=== PATIENT | male | born 1945 | race Caucasian/White ===

== ENCOUNTER → 2018-01-23 08:16 | Outpatient (CLI) | payer MEDICARE, OTHER, SELFPAY ==
--- NOTE | 2018-01-23 | DI.MRI.S_ITS ---
PROCEDURE: MR SHOULDER LT WO CON INDICATIONS: 72 year-old male with chronic left shoulder pain. TECHNIQUE: Noncontrast oblique coronal T2 fast spin echo with fat saturation, oblique sagittal T1 spin echo and T2 fast spin echo with fat saturation, axial T1 spin echo and T2 fast spin echo with fat saturation through the shoulder. COMPARISON: , , SHOULDER MINIMUM 2 VIEW LEFT, 12/16/2010, 14:09. FINDINGS: Image quality: Excellent. Rotator cuff: On sagittal image 8, low-grade intrasubstance partial thickness tears are situated adjacent to the supraspinatus and infraspinatus musculotendinous junctions. There is signal heterogeneity of the supraspinatus and infraspinatus tendon fibers, consistent with tendinopathy. The subscapularis tendon also demonstrates fissural partial thickness articular surface tear through the superior fibers on sagittal image 15. Sagittal images demonstrate mild supraspinatus and infraspinatus muscle atrophy. Bones and bursae: No bone marrow contusions or fractures. There is moderate acromioclavicular joint degeneration, with osseous and synovial hypertrophy. The acromion demonstrates conventional anatomy, without an os acromiale. There is moderate glenohumeral joint degeneration, with full thickness cartilage loss of the glenoid fossa and humeral head articular surface, as well as mild posterior subluxation of the humeral head on axial images. There is small subacromial-subdeltoid bursal fluid. Capsule and soft tissues: There is small glenohumeral joint effusion, extending into the anterior subscapular recess. There is global labral degenerative truncation and tear. In the absence of intra-articular contrast, the glenohumeral ligaments appear intact. The long head of the biceps tendon demonstrates normal location, with moderate loculated tendon sheath fluid within the bicipital groove. There is rotator interval fibrosis, partially obscuring the coracohumeral ligament. IMPRESSION: 1. Low-grade intrasubstance partial thickness tears adjacent to the supraspinatus and infraspinatus musculotendinous junctions (concealed interstitial delamination) on a background of tendinopathy, with associated mild corresponding muscle atrophy. 2. Additional fissural partial thickness articular surface tear through the superior subscapularis tendon fibers. 3. Moderate acromioclavicular and glenohumeral joint degeneration. Mild subacromial-subdeltoid bursitis. 4. Global labral degenerative truncation and tear. 5. Moderate long head of the biceps tenosynovitis within the bicipital groove. 6. Rotator interval fibrosis would raise the question of adhesive capsulitis. Dictated by: Juice Woods M.D. on 01/23/2018 at 9:10 Approved by: Juice Woods M.D. on 01/23/2018 at 9:23
== END ==
PROVIDERS: PCP Family Medicine; Visit Provider Student in an Organized Health Care Education/Training Program
DX: M25.512 Pain in left shoulder (principal); S46.812A Strain of other muscles, fascia and tendons at shoulder and upper arm level, left arm, initial encounter; M65.822 Other synovitis and tenosynovitis, left upper arm
CPT/HCPCS: 73221

== ENCOUNTER → 2018-06-24 07:43 | Outpatient (CLI) | payer MEDICARE, OTHER, SELFPAY ==
--- NOTE | 2018-06-24 | DI.ECHO.S_ITS ---
[facility] +---------+ : : [address] [place] : : : : [id number] : : : : Phone: [phone]+ Echocardiogram Report + + :Name: JON SHARP Study Date: 06/24/2018 Height: 77 in : :[facility] Weight: 255 lb : : Gender: Male BSA: 2.5 m2 : :: 1945 Age: 73 yrs BP: 128/76 mmHg: :Reason For Study: Syncope : : Performed By: Caryn Trevino : :Referring: CAROLE QUIÑONES : + + Interpretation Summary 1) Normal left ventricular thickness, size, wall motion, and systolic function (EF 60-65%). 2) Grossly, normal right ventricular size and function. 3) Diastolic parameters suggest a pseudonormalization pattern, consistent with probable elevated filling pressures. 4) The left atrium is severely dilated. 5) No significant valvular abnormalities. 6) The aortic root is mildly dilated at 4.4cm. The ascending aorta is mild- moderately enlarged at 4.3cm. The aortic arch is mildly enlarged at 3.9cm. 7) No prior echo available for comparison. Procedure: A two-dimensional transthoracic echocardiogram with color flow and Doppler was performed. The study quality was technically adequate. There is no prior echocardiogram noted for this patient. The patient was in normal sinus rhythm during the exam. Left Ventricle: The left ventricle is normal in size, wall thickness, and systolic function without any focal wall motion abnormalities. The ejection fraction is estimated to be 60-65%. Diastolic parameters suggest a pseudonormalization pattern, consistent with probable elevated filling pressures. Right Ventricle: The right ventricle grossly appears normal in size with probable normal systolic function. Atria: The left atrium is severely dilated. Right atrial size is normal. The interatrial septum is intact with no evidence for an atrial septal defect. Mitral Valve: The mitral valve is grossly normal. There is no mitral regurgitation noted. Aortic Valve: The aortic valve is trileaflet. The aortic valve opens well. The aortic valve is mildly calcified. There is no aortic valve stenosis. No aortic regurgitation is present. Tricuspid Valve: The tricuspid valve is normal in structure and function. There is a trace or physiologic amount of tricuspid regurgitation. The right ventricular systolic pressure is estimated to be at least 34 mmHg based on an estimated right atrial pressure of 3 mm Hg. Pulmonic Valve: The pulmonic valve is not well seen, but is grossly normal. There is trace pulmonic regurgitation. Great Vessels: The aortic root is mildly dilated. The ascending aorta is mild-moderately enlarged. The aortic arch is mildly enlarged. The IVC is of normal diameter and collapses greater than 50% with a sniff. This suggests a low right atrial pressure of 3 mm Hg. Pericardium/ Pleura There is no pericardial effusion. There is no pleural effusion. MMode/2D Measurements & Calculations LVIDd: 5.4 cm Ao root diam: 4.4 cm LVIDs: 2.9 cm Aortic Jxn: 3.6 cm FS: 47.1 % asc Aorta Diam: 4.3 cm EPSS: 0.32 cm Ao Arch Diam (Prox Trans): 3.9 cm IVSd: 1.1 cm LVPWd: 0.98 cm LV harden. diameter/BSA (cm/m^2): 2.2 LV sys. diameter/BSA (cm/m^2): 1.2 LA dimension: 4.4 cm RA long axis: 6.0 cm LA A2 area: 33.3 cm2 RA area: 20.4 cm2 LA A4 area: 31.0 cm2 RA vol: 59.3 ml LA length (vol): 7.0 cm RA : 23.9 ml/m2 LA vol: 125.6 ml IVC diam: 2.0 cm LA vol index: 50.6 ml/m2 Doppler Measurements & Calculations Ao V2 max: 171.1 cm/sec MV E max chin: 97.8 cm/sec Ao V2 mean: 111.0 cm/sec MV A max chin: 84.9 cm/sec Ao max P.7 mmHg MV E/A: 1.2 Ao mean P.9 mmHg Med Peak E' Chin: 6.1 cm/sec Ao V2 VTI: 35.1 cm E/E' med: 16.0 Lat Peak E' Chin: 8.1 cm/sec E/E' lat: 12.2 E/e' average: 14.1 MV dec time: 0.30 sec MV P1/2t: 89.6 msec TR max chin: 277.5 cm/sec MV P1/2t max chin: 98.2 cm/sec TR max P.8 mmHg MVA(P1/2t): 2.5 cm2 PA V2 max: 97.7 cm/sec PA V2 mean: 66.2 cm/sec PA mean P.1 mmHg PA Accel Time: 0.13 sec Reading Physician:05:29 PM
== END ==
PROVIDERS: PCP Family Medicine; Visit Provider Family Medicine
DX: R55 Syncope and collapse (principal); I77.810 Thoracic aortic ectasia; R56.9 Unspecified convulsions
CPT/HCPCS: 93306

== ENCOUNTER → 2018-07-29 07:38 | Outpatient (CLI) | payer MEDICARE, OTHER, SELFPAY ==
--- NOTE | 2018-07-29 | DI.MRI.S_ITS ---
PROCEDURE: MR STROKE Pre- and post-contrast brain MRI, non-contrast brain MR angiogram, pre- and postcontrast neck MR angiogram INDICATIONS: syncope and seizure TECHNIQUE: Brain: Noncontrast axial T1 spin echo, axial T2 fast spin echo, sagittal and axial FLAIR, coronal T2 fast spin echo, axial gradient echo, axial diffusion and ADC through the brain. After the administration of contrast, axial 3D VIBE of the cranial vasculature and brain. Brain MRA: Non-contrast 3-D time of flight MR angiogram, with multiple zrmtlhy-dluioksvt-utgpehaacq (MIP) reformats performed. Neck MRA: Axial and sagittal TruFISP through the neck. Coronal dynamic MR angiogram during administration of contrast in the arterial and venous phases, with 3-dimenstional cwqizvi-gcobezvsz-uavednfxxs (MIP) reformats constructed from subtraction images. COMPARISON: None. FINDINGS: Image quality: Excellent. BRAIN: CSF spaces: Ventricles are normal in size and shape. Basal cisterns are patent. No extra-axial fluid collections. Brain: No intracranial bleeds or mass effects. Paul-white matter interface is normal. Diffusion weighted images show no acute ischemic insults. Mild diffuse cerebral volume loss. Brainstem appears normal. Normal intravascular flow voids are present. No abnormal intracranial enhancement. Skull and face: Calvarial marrow signal is normal. Orbits appear normal. Sinuses: Sinuses and mastoids are clear. BRAIN MR ANGIOGRAM: Anterior circulation: Intracranial internal carotid arteries are normal in size and enhancement. The flow within the paired anterior cerebral arteries is normal and symmetric. The flow within the middle cerebral arteries is normal and symmetric. The anterior communicating artery is seen. No stenoses, occlusions, or aneurysms. Posterior circulation: The visualized portions of the vertebral arteries demonstrate normal caliber, and join to form a normal appearing basilar artery. The flow within the posterior cerebral arteries is normal and symmetric. No stenoses, occlusions, or aneurysms. NECK MR ANGIOGRAM: Carotids: Great vessels demonstrate a conventional anatomy as they arise from the aortic arch. The origins of the common carotid arteries appear patent. The calibers and courses of both common carotid arteries are normal. The bifurcation regions appear normal bilaterally. The internal carotid arteries demonstrate normal course and caliber. Posterior circulation: The origins of the vertebral arteries are not well-seen. More superior portions of both vertebral arteries demonstrate normal course and caliber, and join to form a normal appearing basilar artery. Miscellaneous: Subclavian arteries appear patent. Pre-contrast images through the neck show no soft tissue abnormalities. IMPRESSION: BRAIN MRI: 1. No acute process. No recent infarct. 2. Mild diffuse cerebral volume loss. BRAIN MR ANGIOGRAM: Negative cerebral MR angiography. NECK MR ANGIOGRAM: 1. Patent bilateral internal carotid arteries. 2. Suboptimally visualized vertebral artery origins. Vertebral arteries are otherwise patent. Dictated by: River Fay M.D. on 07/29/2018 at 9:38 Approved by: River Fay M.D. on 07/29/2018 at 9:42
== END ==
PROVIDERS: PCP Family Medicine; Visit Provider Family Medicine
DX: R55 Syncope and collapse (principal); R56.9 Unspecified convulsions
CPT/HCPCS: 70553

== ENCOUNTER → 2018-12-11 08:14 | Outpatient (CLI) | payer MEDICARE, OTHER, SELFPAY ==
--- NOTE | 2018-12-11 09:27 | PM.TREADMILL ---
Cardiac Stress Test Report Referral & Results Date Patient Seen: 12/11/18 Requesting provider: Alexys Patino Indication: Syncope Rest ECG: Unremarkable Procedure Note: Today following both written and verbal informed consent the patient was exercised according to a standard Ramon protocol patient went for a total of 8 minutes 4 seconds achieving a maximum heart rate of 137 maximum systolic blood pressure of 226. This is approximately 10.1 METS. Exercise was terminated at this point because of targets were met. Patient was also given Cardiolite through a previously started Hep-Lock IV by the electrocardiographic technician approximately 1 minute prior to the cessation of exercise. With exercise patient did develop flat upsloping ST segment depression in leads V4 through V6 however there is lots of gukr-ja-vddh variability some of which was at baseline leading me to believe this was nonischemic but related to rate and motion. This also returned rapidly to baseline with cessation of activity that also suggesting nonischemic nature Patient had occasional PVCs including ventricular couplets and a single triplet during the exercise and recovery portion of the test. Later in recovery patient also had occasional PACs including brief (5-10 beats) runs of SVT that were asymptomatic Patient's functional aerobic impairment rated-15% on the active scale or 115% of normal Patient did have a hypertensive response to exercise peaking with blood pressure at 226/115 about 1 minutes into recovery. Patient had normal heart rate response off of his metoprolol Impression: Nonischemic ST changes as above Cardiac dysrhythmia as above Better than average exercise capacity Please see perfusion imaging as well for details regarding possible ischemia Please note: Actual ECG tracings can be found in the PACS system.
--- NOTE | 2018-12-11 09:30 | P.PCN_ITS ---
Cardiac Stress Test Report Referral & Results Date Patient Seen: 12/11/18 Requesting provider: Alexys Patino Indication: Syncope Rest ECG: Unremarkable Procedure Note: Today following both written and verbal informed consent the patient was exercised according to a standard Ramon protocol patient went for a total of 8 minutes 4 seconds achieving a maximum heart rate of 137 maximum systolic blood pressure of 226. This is approximately 10.1 METS. Exercise was terminated at this point because of targets were met. Patient was also given Cardiolite through a previously started Hep-Lock IV by the warehouse technician approximately 1 minute prior to the cessation of exercise. With exercise patient did develop flat upsloping ST segment depression in leads V4 through V6 however there is lots of amzq-ug-gdwr variability some of which was at baseline leading me to believe this was nonischemic but related to rate and motion. This also returned rapidly to baseline with cessation of activity that also suggesting nonischemic nature Patient had occasional PVCs including ventricular couplets and a single triplet during the exercise and recovery portion of the test. Later in recovery patient also had occasional PACs including brief (5-10 beats) runs of SVT that were asymptomatic Patient's functional aerobic impairment rated-15% on the active scale or 115% of normal Patient did have a hypertensive response to exercise peaking with blood pressure at 226/115 about 1 minutes into recovery. Patient had normal heart rate response off of his metoprolol Impression: Nonischemic ST changes as above Cardiac dysrhythmia as above Better than average exercise capacity Please see perfusion imaging as well for details regarding possible ischemia Please note: Actual ECG tracings can be found in the PACS system.
--- NOTE | 2018-12-12 16:54 | DI.NM.S_ITS ---
DATE OF SERVICE: 12/11/2018 PROCEDURE: Two-day treadmill nuclear stress test. INDICATIONS: Syncope and collapse. Nonsustained VT on monitor. CLINICAL: Patient exercised for 8 minutes and 8 seconds reaching 92% of maximum predicted heart rate. METs achieved were 10.1 with SINA of -15% on active scale. No anginal or anginal-equivalent symptoms during stress test. ECG: Resting ECG shows normal sinus rhythm. With exercise, there were frequent PVCs and occasional PACs noted. During recovery, there were frequent PVCs as well including in couplets that appear multi-focal. There were very mild horizontal ST depressions in the anterolateral leads that resolved within 1 minute of recovery. HEMODYNAMICS: Resting blood pressure, 132/86, and max blood pressure 226/115 mmHg. RADIOPHARMACEUTICAL: 25.7 mCi of TC-99 used for rest injection and 25.7 mCi TC- 99 used for stress injection. PERFUSION IMAGES: No perfusion evidence of ischemia or infarction. GATED IMAGES: Normal left ventricular size, wall motion, and systolic function (post stress EF 66%). CONCLUSIONS: Low risk, normal treadmill nuclear stress test from ischemia standpoint. Frequent premature ventricular contractions (PVCs) during the exercise stress test along with hypertensive response. 1. No perfusion evidence of ischemia or infarction. 2. Normal left ventricle or size, wall motion, and systolic function (post stress ejection fraction (EF) 66%). 3. No angina or anginal-equivalent symptoms during the stress test. 4. Nondiagnostic ECG. Mild horizontal ST depressions in the anterolateral leads during very early recovery that results by 1 minute of recovery. 5. Frequent PVCs during this exercise and recovery portion of the stress test. During recovery, multi-focal couplets were also noted. Occasional premature atrial contractions (PACs) noted as well. 6. Good exercise capacity (10.1 METs, SINA -15%). Target heart rate achieved. 7. Hypertensive response to exercise (resting BP 132/86, max BP 226/115 mmHg). 8. No prior nuclear stress test available for comparison. Robert Croft LORRIE/radha/ doc#: [id number]/job#: [id number] dd: 12/12/2018 13:04:00 dt: 12/12/2018 16:41:00 DICTATING MD/COPIES TO: Silke Hays MD COPIES MNE: LUIS
== END ==
PROVIDERS: PCP Family Medicine; Visit Provider Internal Medicine Cardiovascular Disease
DX: R55 Syncope and collapse (principal); I49.3 Ventricular premature depolarization; I49.1 Atrial premature depolarization
CPT/HCPCS: 78452; 93016; 93017; 93018; A9502

== ENCOUNTER → 2020-01-27 10:12 | Outpatient (CLI) | payer MEDICARE, OTHER, SELFPAY ==
[2020-01-28 14:14] LABS: COVID19 Sendout Not Detected
== END ==
PROVIDERS: PCP Family Medicine; Visit Provider Registered Nurse
DX: Z01.812 Encounter for preprocedural laboratory examination (principal)
CPT/HCPCS: 87635

== ENCOUNTER 2020-01-30 14:54 | Day surgery (SDC) | payer MEDICARE, OTHER, SELFPAY ==
[2020-01-30] VITALS (7 sets, daily range): BP systolic 99–128; BP diastolic 60–81; PULSE 58–71; RESP 12–18; TEMP 36.5–36.7; O2SAT 94–99; BMI 208.9
--- NOTE | 2020-01-30 | PATH_ITS ---
[facility] Accession Number: [id number] . 01 Material submitted: . colon - SIGMOID COLON POLYP BIOPSY . 01 Clinical history: . COLONOSCOPY W/ANESTHESIA . 02 Diagnosis: Sigmoid Colon, Polyp, Biopsy: Tubular adenoma. V 02/02/2020 1123 Local . 02 Electronically signed: . Shaye Wong MD, Pathologist NPI- [id number] . 01 Gross description: . SIGMOID COLON POLYP BIOPSY: Received in formalin are 3 fragment(s) of mohr, soft tissue measuring 0.3 x 0.3 x 0.3 cm to 0.1 x 0.1 x 0.1 cm submitted entirely in 1 cassette(s) /QBJ 01/31/2020 0650 Local . 02 Pathologist provided ICD-10: D12.5 . 02 CPT . 368535 Performed at: [address] [facility] [address], [place], [place] [id number] MD Timmy Dickens MD Phone: [phone] Performed at: [address] [facility] [address] [place], [place] [id number] MD Shaye Wong MD Phone: [phone]
--- NOTE | 2020-01-30 07:24 | PM.OP.ENDO ---
Operative Date/Time/Diagnoses Date of procedure: 01/30/20 Time of procedure: 16:01 Pre-op diagnosis: 1. History of colon polyps 2. Screening for colon cancer Post-op diagnosis: other (1. Sigmoid polyp x1, 3 mm, removed with cold biopsy forceps, 2. Sigmoid diverticulosis) Procedure & Clinicians Study performed: Colonoscopy Same procedure as scheduled: Yes Indications: 1. History of colon polyps 2. Screening for colon cancer Surgeon: Coral Ross Procedure Notes SCOAP/Timeout: 16:01 Procedure in detail: ENDOSCOPIST: Coral Ross MD ANESTHESIOLOGIST: Gayle Suarez MD PROCEDURE: Colonoscopy with biopsy INDICATIONS: 1. History of colon polyps 2. Screening for colon cancer MEDICATION: Levsin 0.125 mg sublingual, fentanyl 100 mcg, and titrated propofol until appropriate level of sedation achieved. ASA CLASS: 3 CECAL WITHDRAWAL TIME: 12 minutes COMPLICATIONS: None. EXTENT OF PROCEDURE: Cecum. QUALITY OF PREP: Good with portions of liquid stool. PROCEDURE: Prior to insertion of the colonoscope, a digital rectal examination was accomplished with circumferential palpation of the distal rectal mucosa without significant findings being noted. The high-definition colonoscope was passed into the rectum in the usual fashion and advanced over to the cecum without difficulty. The ileocecal valve, appendiceal stoma, and medial wall all could be inspected and no abnormalities were seen. ASCENDING COLON: As the colonoscope was withdrawn, care was taken to expose and inspect the haustral folds and no abnormalities were seen. HEPATIC FLEXURE: Normal, no polyps, diverticula or other abnormalities. TRANSVERSE COLON: Normal, no polyps, diverticula or other abnormalities. DESCENDING COLON: Normal, no polyps, diverticula or other abnormalities. SIGMOID COLON: 3 mm polyp removed with cold biopsy forceps. Moderate diverticulosis, noninflamed. Otherwise, normal, no other abnormalities. RECTUM: Normal. J maneuver was produced. There was no significant perianal disease. The J maneuver was broken. The remainder of the rectum was inspected and there was no external hemorrhoid disease. The scope was withdrawn. IMPRESSION: 1. Sigmoid polyp x1, 3 mm, removed with biopsy forceps 2. Sigmoid diverticulosis, moderate PLAN: 1. Follow-up in clinic status post pathology results. The possibility of a missed lesion including a malignancy has been discussed with the patient previously. Potential alarm symptoms have been discussed and should be reported immediately. Complications: none Post-procedure Recommendations: Will call with biopsy results Follow up: weeks (2) Disposition: PACU
[2020-01-30] MEDS: HYOSCYAMINE 0.125 MG TABLET PO (15:15)
[2020-01-30] MEDS: LACTATED RINGERS 1,000 ML 200 ML IV (15:15)
--- NOTE | 2020-01-30 15:48 | PM.PREOP ---
Pre-operative Note COVID-19 COVID-19 status: Negative Result date/Date tested (Pos, Neg/Pending): 01/27/20 Interval Note History & Physical reviewed/Exam performed by Physician: Yes Changes to H&P: No ASA Class (for procedural sedation): III (01/27/20)
--- NOTE | 2020-01-30 17:25 | SUR.PHASEII ---
Pt left when ready and left in stable condition.
--- NOTE | 2020-01-30 17:26 | SUR.PHASEII ---
informed of Dr. Ross's d/c instructions.
== END 2020-01-30 17:25 | disposition home or self-care (01) ==
PROVIDERS: PCP Family Medicine; Referring Provider Student in an Organized Health Care Education/Training Program; Visit Provider Student in an Organized Health Care Education/Training Program
PROC: 0DJD8ZZ Inspection of Lower Intestinal Tract, Via Natural or Artificial Opening Endoscopic (ICD-10-PCS; CPT 45378; principal; 2020-01-30 16:00)
DX: Z12.11 Encounter for screening for malignant neoplasm of colon (principal); Z86.010 Personal history of colon polyps; Z11.59 Encounter for screening for other viral diseases; I73.9 Peripheral vascular disease, unspecified; E06.3 Autoimmune thyroiditis; I10 Essential (primary) hypertension; E78.5 Hyperlipidemia, unspecified; K57.30 Diverticulosis of large intestine without perforation or abscess without bleeding; D12.5 Benign neoplasm of sigmoid colon
CPT/HCPCS: 45380; J2704; J3010

== ENCOUNTER → 2021-03-29 10:28 | Outpatient (CLI) | payer MEDICARE, OTHER, SELFPAY ==
--- NOTE | 2021-03-29 | DI.CT.S_ITS ---
PROCEDURE: CT ABDOMEN PELVIS W CON INDICATIONS: Unspecified abdominal pain TECHNIQUE: After the administration of oral and intravenous contrast, axial sections were acquired from the lung bases to the pubic symphysis. Coronal and sagittal reformats were performed. For radiation dose reduction, the following was used: automated exposure control, adjustment of mA and/or kV according to patient size. COMPARISON:None. FINDINGS: Image quality: Excellent. Lung bases: Lung bases are clear. Heart size is normal. Solid organs: Liver: The liver has no mass or intrahepatic biliary ductal dilatation. The right lobe of the liver has a 1.5 cm cyst. The portal vein and hepatic veins are patent. Biliary: The gallbladder has no gallstones, pericholecystic fluid, gallbladder wall thickening, or surrounding inflammatory change. Pancreas: The pancreas has no mass or ductal dilatation. There is no surrounding inflammation. Spleen: Normal size. There are no masses. Adrenals: No hypertrophy or nodules. Kidneys: No obstructive calculus or hydronephrosis. No solid mass. There is a 1 cm right renal cyst. Peritoneum and bowel: The distal esophagus and stomach are normal. The small bowel has a normal caliber and appearance. The terminal ileum is normal. The large bowel has diverticulosis with no evidence of diverticulitis. The appendix is not definitively visualized; however there are no secondary CT findings to suggest acute appendicitis. No free fluid or air. Nodes and vessels: No retroperitoneal or mesenteric adenopathy by size criteria. The aorta demonstrates postoperative changes of aortobifemoral stent graft placement. There is no evidence of endoleak. The inferior vena cava is normal in size. The left SYSTEMS ADMINISTRATOR has a 50% stenosis. Miscellaneous: No abdominal wall mass or hernia. PELVIS: Genitourinary: The bladder has no wall thickening or mass. No bladder calcifications. Miscellaneous: No inguinal hernias or adenopathy. Bones: Degenerative changes with no focal abnormality. No vertebral body compression fractures. IMPRESSION: No acute abdominal or pelvic abnormality. Dictated by: Roshan Dumont M.D. on 03/29/2021 at 12:10 Approved by: Roshan Dumont M.D. on 03/29/2021 at 12:18
== END ==
PROVIDERS: PCP Family Medicine; Referring Provider Family Medicine; Visit Provider Family Medicine
DX: R10.9 Unspecified abdominal pain (principal)
CPT/HCPCS: 74177

== ENCOUNTER → 2021-06-24 09:39 | Outpatient (CLI) | payer MEDICARE, OTHER, SELFPAY ==
[2021-06-24 11:56] LABS: COVID19 -Nasal RAPID Negative (Negative)
== END ==
PROVIDERS: PCP Family Medicine; Visit Provider Physician Assistant
DX: Z20.822 Contact with and (suspected) exposure to COVID-19 (principal)
CPT/HCPCS: 87635; C9803

== ENCOUNTER → 2021-10-10 10:45 | Outpatient (CLI) | payer MEDICARE, OTHER, SELFPAY ==
--- NOTE | 2021-10-10 | DI.US.S_ITS ---
PROCEDURE: US PERIPH VENOUS LOW EXTREM LT INDICATIONS: LEFT CALF PAIN TECHNIQUE: Real-time imaging, as well as color and pulse Doppler interrogation, were performed of the lower extremity deep veins from the inguinal ligament to the popliteal fossa. COMPARISON: None. FINDINGS: The common femoral, femoral and popliteal veins are normally compressible, and free of intraluminal thrombus. Color and pulse Doppler demonstrate normal phasic intraluminal flow. There is normal augmentation response to distal compression maneuver. IMPRESSION: No evidence of deep vein thrombosis involving the left lower extremity. Dictated by: Dorys Brunson MD, PhD on 10/10/2021 at 11:56 Approved by: Dorys Brunson MD, PhD on 10/10/2021 at 11:56
== END ==
PROVIDERS: PCP Family Medicine; Referring Provider Internal Medicine; Visit Provider Internal Medicine
DX: M79.662 Pain in left lower leg (principal)
CPT/HCPCS: 93971

== ENCOUNTER → 2021-12-08 11:57 | Outpatient (CLI) | payer MEDICARE, OTHER, SELFPAY ==
--- NOTE | 2021-12-08 | DI.RAD.S_ITS ---
PROCEDURE: XR FINGER RT MIN 2V INDICATIONS: right thumb pain TECHNIQUE: AP hand, 2 views of the right thumb acquired. COMPARISON: None. FINDINGS: Bones: No fractures or dislocations. No suspicious bony lesions. Degenerative arthritis involving the thumb IP joint and MCP joint. Mild triscaphe joint degenerative arthritis. Soft tissues: No suspicious soft tissue calcifications. 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 Dictated by: Jose Bowling M.D. on 12/08/2021 at 15:39 Approved by: Jose Bowling M.D. on 12/08/2021 at 15:40
== END ==
PROVIDERS: PCP Family Medicine; Referring Provider Family Medicine; Visit Provider Family Medicine
DX: M18.11 Unilateral primary osteoarthritis of first carpometacarpal joint, right hand (principal); M19.031 Primary osteoarthritis, right wrist; M79.644 Pain in right finger(s)
CPT/HCPCS: 73140

== ENCOUNTER → 2022-03-14 13:11 | Outpatient (ROUT) | payer MEDICARE, OTHER, SELFPAY ==
[2022-03-14 15:05] LABS: COVID19 -Nasal RAPID Negative (Negative)
== END ==
PROVIDERS: PCP Family Medicine; Visit Provider Family Medicine
DX: Z20.822 Contact with and (suspected) exposure to COVID-19 (principal); R50.9 Fever, unspecified
CPT/HCPCS: 87635

== ENCOUNTER → 2022-03-21 08:22 | Outpatient (ROUT) | payer MEDICARE, OTHER, SELFPAY ==
[2022-03-21 09:03] LABS: Add Manual Diff / Slide Review NO; Basophils Absolute Auto 0 /uL (0-100); Basophils Percent Auto 0.4 % (0-2); Eosinophils Absolute Auto 100 /uL (0-450); Eosinophils Percent Auto 1.1 % (2-4); Hematocrit 37.8 % (41-53); Hemoglobin 13.2 g/dL (13.5-17.5); Lymphocytes Absolute Auto 2200 /uL (1100-4500); Lymphocytes Percent Auto 21.8 % (25-40); Mean Corpuscular Hemoglobin 32.1 PG (26-34); Mean Corpuscular Volume 91.6 fL (80-100); Monocytes Absolute Auto 900 /uL (0-900); Monocytes Percent Auto 8.7 % (3-14); Neutrophils Absolute Auto 6800 /uL (1500-7000); Platelet Count 282 X10^3/uL (150-400); Red Blood Cell Count 4.13 X10^6/uL (4.5-5.9); Red Cell Distribution Width 14.2 % (11.6-14.8)
== END ==
PROVIDERS: PCP Family Medicine; Visit Provider Family Medicine
DX: R50.9 Fever, unspecified (principal); D72.829 Elevated white blood cell count, unspecified
CPT/HCPCS: 85025

== ENCOUNTER → 2022-03-21 16:12 | Outpatient (CLI) | payer MEDICARE, OTHER, SELFPAY ==
[2022-03-21 18:09] LABS: Alanine Aminotransferase 48 IU/L (<50); Albumin 3.8 g/dL (3.5-5.0); Albumin Globulin Ratio 1.2 (1.0-2.8); Alkaline Phosphatase 85 U/L (38-126); Aspartate Aminotransferase 27 IU/L (17-59); Bilirubin Total 0.5 mg/dL (0.2-1.3); Blood Urea Nitrogen 20 mg/dL (9-20); C-Reactive Protein Quant 7.8 mg/dL (<1.0); Calcium 8.6 mg/dL (8.4-10.2); Carbon Dioxide 24 mmol/L (22-32); Chloride 98 mmol/L (98-107); Estimated Glomerular Filt Rate > 60 mL/min (>60); Globulin 3.1 g/dL (1.7-4.1); Glucose 98 mg/dL (80-110); HEMOLYSIS < 15 (0-50); Sodium 131 mmol/L (137-145); Total Protein 6.9 g/dL (6.3-8.2)
== END ==
PROVIDERS: PCP Family Medicine; Referring Provider Family Medicine; Visit Provider Family Medicine
DX: D72.829 Elevated white blood cell count, unspecified (principal); R50.9 Fever, unspecified
CPT/HCPCS: 36415; 80053; 85025; 86140

== ENCOUNTER → 2022-04-25 09:44 | Outpatient (CLI) | payer MEDICARE, OTHER, SELFPAY ==
--- NOTE | 2022-04-25 09:47 | DI.US.S_ITS ---
PROCEDURE: US ABDOMEN COMPLETE INDICATIONS: Specified abnormal findings of blood chemistry TECHNIQUE: Real-time scanning was performed of the abdominal and retroperitoneal organs, with image documentation. COMPARISON: None. FINDINGS: Liver: Liver is normal in size and homogeneous in echotexture. Gallbladder: There is no gallstone. No gallbladder wall thickening or pericholecystic fluid. No sonographic Magana sign. Biliary ducts: Intrahepatic bile ducts are non-dilated. Extrahepatic bile duct caliber measures 3.6 mm. Normal is 6-7 mm or less in diameter, or 10 mm or less post-cholecystectomy. Pancreas: Visualized portions of the pancreas are sonographically normal. Spleen: Spleen is normal in size and homogeneous in echotexture. Kidneys: Kidneys are normal in size and echotexture. Right kidney measures 12.3 cm long; left kidney measures 13.3 cm long. No hydronephrosis or nephrolithiasis. No solid masses. Aorta: Visualized proximal to mid aorta is normal in caliber at less than 3 cm. Distal abdominal aortic aneurysm is seen with red devil distal abdominal aorta measures 6.3 cm in diameter. Aorto bi-iliac stent is seen and is patent. Iliacs: Proximal common iliac arteries are normal in caliber at less than 2.5 cm. IVC: Intrahepatic inferior vena cava is patent. Miscellaneous: No free abdominal fluid. IMPRESSION: 1. Distal infrarenal abdominal aortic aneurysm with prior placement of aorto bi-iliac stent. The stent is patent. No periaortic fluid. 2. Rest of the exam is unremarkable. Dictated by: Dm Mascorro M.D. on 04/25/2022 at 11:39 Approved by: Dm Mascorro M.D. on 04/25/2022 at 11:41
== END ==
PROVIDERS: PCP Family Medicine; Referring Provider Family Medicine; Visit Provider Family Medicine
DX: I71.4 Abdominal aortic aneurysm, without rupture (principal); R79.89 Other specified abnormal findings of blood chemistry
CPT/HCPCS: 76700

== ENCOUNTER → 2022-04-27 14:23 | Outpatient (CLI) | payer MEDICARE, OTHER, SELFPAY ==
--- NOTE | 2022-04-27 14:26 | DI.CT.S_ITS ---
PROCEDURE: CT CHEST ABD PEL W CON INDICATIONS: ABNORMAL WEIGHTLOSS/ABNORMAL LABS TECHNIQUE: After the administration of oral and intravenous contrast, axial sections acquired from the supraclavicular neck to the pubic symphysis. Coronal and sagittal reformats were performed. For radiation dose reduction, the following was used: automated exposure control, adjustment of mA and/or kV according to patient size. COMPARISON: [facility], CT, CT ABDOMEN PELVIS W CON, 03/29/2021, 11:14. FINDINGS: Image quality: Degraded by metallic artifact in the chest. motion degraded. CHEST: Lower Neck: No enlarged lymph nodes. Thyroid: Within normal limits Axillae: No adenopathy. Chest Wall: Postsurgical changes of the shoulders. This is only partially seen. There is some irregularity versus artifact around the right shoulder arthroplasty. () Lungs and Airways: Scattered scarring and atelectasis. No dense consolidation. No pleural effusion. There are calcified granulomas. Micro nodules are present, for example in the right image 6/105, for which follow-up is optional. Pleura: No pleural effusions or pneumothorax. Heart: Coronary artery calcifications. Thoracic Vessels: No aneurysm of the thoracic aorta. Mediastinum and Kylee: No adenopathy by size criteria. Esophagus: Small hiatal hernia and suspected small amount of reflux. ABDOMEN: Liver: Stable hypoattenuating lesion in segment 5. Subcentimeter lesions are too small to characterize. These are stable. Gallbladder: Unremarkable Biliary ducts: Unremarkable. 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 Mildly atrophic pancreas Spleen: Unremarkable. Adrenal Glands: Unremarkable. Kidneys and Ureters: Sub centimeters are too small to characterize. Bosniak 1 and 2 lesions are present. Stomach and Bowel: No bowel obstruction. Irregular suspected luminal contents in the cecal wall, although a left luminal mass could have this appearance. Peritoneum: No pathologic ascites. Ventral Wall: Small fat containing umbilical hernia. Right flank soft tissue contusion. Abdominal Nodes: Perivascular lesion in the left periaortic region measuring 16 millimeters in short axis (79), and a thickness of 2.4 centimeters (72.) Vessels: Infrarenal aortic stent graft extending to the iliacs as before. Also see above. PELVIS: Pelvic Organs: Prostate is not well evaluated Bladder: Unremarkable. Pelvic Nodes: No enlarged lymph nodes. Miscellaneous: No inguinal hernias are seen. Bones: Scattered spondylotic changes. Heterogeneous, indeterminate appearance of the bones in the upper thoracic spine. Small lucent lesion in the C7 vertebral body measuring 9 millimeters. Minimally displaced fracture of the right 11th rib. IMPRESSION: Possible soft tissue lesion around the aorta just below the renal arteries. Differential also includes extension and possible infection of the excluded aneurysm sac. Aortic stent graft is in place. Indeterminate lucency in the C7 vertebral body with heterogeneous appearance of the cervical thoracic vertebral bodies, at least partially due to degenerative changes. Depending on clinical context, the above findings could be further evaluated with PET-CT or MRI. Right flank soft tissue contusion and minimally displaced fracture of the right 11th rib. Irregularity of the partially seen right proximal humerus around the arthroplasty may be due to artifact. If there are symptoms in this region, consider dedicated radiograph. Heterogeneous cecum likely secondary to mixing luminal contents, although intraluminal mass could also have this appearance. Correlate with colonoscopy. Other incidental findings above. Dictated by: Madhav Nino M.D. on 04/27/2022 at 17:30 Approved by: Madhav Nino M.D. on 04/27/2022 at 17:52
== END ==
PROVIDERS: PCP Family Medicine; Referring Provider Family Medicine; Visit Provider Family Medicine
DX: R93.5 Abnormal findings on diagnostic imaging of other abdominal regions, including retroperitoneum (principal); R63.4 Abnormal weight loss; R79.89 Other specified abnormal findings of blood chemistry; S30.1XXA Contusion of abdominal wall, initial encounter; S22.31XA Fracture of one rib, right side, initial encounter for closed fracture
CPT/HCPCS: 71260; 74177; Q9967

== ENCOUNTER → 2022-04-28 17:40 | Outpatient (CLI) | payer MEDICARE, OTHER, SELFPAY ==
[2022-04-28 18:12] LABS: Add Manual Diff / Slide Review NO; Basophils Absolute Auto 100 /uL (0-100); Basophils Percent Auto 0.4 % (0-2); Eosinophils Absolute Auto 0 /uL (0-450); Eosinophils Percent Auto 0.1 % (2-4); Hematocrit 32.3 % (41-53); Hemoglobin 11.1 g/dL (13.5-17.5); Lymphocytes Absolute Auto 1000 /uL (1100-4500); Lymphocytes Percent Auto 5.5 % (25-40); Mean Corpuscular HGB Conc 34.3 % (30-36); Mean Corpuscular Hemoglobin 30.1 PG (26-34); Mean Corpuscular Volume 87.7 fL (80-100); Monocytes Absolute Auto 1400 /uL (0-900); Monocytes Percent Auto 7.7 % (3-14); Neutrophils Absolute Auto 16100 /uL (1500-7000); Neutrophils Percent Auto 86.3 % (50-75); Platelet Count 444 X10^3/uL (150-400); Red Blood Cell Count 3.68 X10^6/uL (4.5-5.9); White Blood Cell Count 18.6 X10^3/uL (4.5-11.0)
[2022-05-02 18:10] LABS: Anti Thyroglobulin Antibody >2250.0 IU/mL (0.0-0.9); Thyroid Peroxidase Antibodies 166 IU/mL (0-34)
[2022-05-10 21:34] LABS: Thyroglobulin Level 20 ng/mL (.)
== END ==
PROVIDERS: PCP Family Medicine; Referring Provider Family Medicine; Visit Provider Family Medicine
DX: E07.9 Disorder of thyroid, unspecified (principal); D72.829 Elevated white blood cell count, unspecified; R63.4 Abnormal weight loss; R53.83 Other fatigue
CPT/HCPCS: 36415; 84432; 85025; 86376; 86800; 87040

== ENCOUNTER → 2022-04-28 17:46 | Outpatient (CLI) | payer MEDICARE, OTHER, SELFPAY ==
--- NOTE | 2022-04-28 17:49 | DI.MRI.S_ITS ---
PROCEDURE: MR ABDOMEN WO/W CON INDICATIONS: PERIAORTIC MASS TECHNIQUE: Coronal HASTE, axial 2D FLASH in- and [id number]; axial breath-hold T2 FSE. Dynamic axial VIBE during the administration of contrast; post-contrast coronal VIBE or 2D FLASH with fat saturation from the hepatic dome to the iliac crests. Optional diffusion weighted imaging and ADC may be performed. COMPARISON: [facility], CT, CT ABDOMEN PELVIS W CON, 03/29/2021, 11:14. [facility], CT, CT CHEST ABD PEL W CON, 04/27/2022, 16:06. FINDINGS: Image quality: Excellent. Lung bases: No basal pleural effusions. Solid organs: Liver is normal in size and enhancement. A few small hepatic cysts are present. Gallbladder is unremarkable. Biliary system is non dilated. Pancreas is normal in morphology. Spleen is normal in size and enhancement. No adrenal nodules. Both kidneys demonstrate normal size and enhancement, without hydronephrosis. Small simple renal cortical cysts are present. Nodes and vessels: No retroperitoneal or mesenteric adenopathy by size criteria. An infrarenal aorto bi-iliac stent is present as seen on prior CTs. As seen on the most recent CT, there is a saccular aneurysm along the left aspect of the abdominal aorta, just inferior to the origin of the renal arteries. This measures approximately 6.6 centimeters craniocaudally () and 2.6 centimeters in thickness (). There is mild adjacent fat stranding and enhancement of the aneurysm wall. No definite extravasation of contrast into the aneurysm/endoleak visualized. The finding abuts the left psoas muscle without a definite psoas abscess visualized. Bowel and peritoneum: Visualized large and small bowel is non-dilated. Bones and soft tissues: Bone marrow is normal in overall signal. IMPRESSION: Redemonstrated saccular aneurysm along the left aspect of the abdominal aorta, just inferior to the origin of the renal arteries. 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 No definite evidence of endoleak. Vascular surgical consultation may be helpful to direct further management. Dictated by: Rick Steele M.D. on 04/29/2022 at 10:00 Approved by: Rick Steele M.D. on 04/29/2022 at 10:22
== END ==
PROVIDERS: PCP Family Medicine; Referring Provider Family Medicine; Visit Provider Family Medicine
DX: I71.4 Abdominal aortic aneurysm, without rupture (principal); R22.2 Localized swelling, mass and lump, trunk; E07.9 Disorder of thyroid, unspecified; D72.829 Elevated white blood cell count, unspecified; R53.83 Other fatigue; R63.4 Abnormal weight loss
CPT/HCPCS: 36415; 74183; 84432; 85025; 86376; 86800; 87040; A9579